=== PATIENT | male | born 1990 | race Caucasian/White ===

== ENCOUNTER 2022-03-11 10:14 | Outpatient (CLI) | payer SELFPAY ==
[2022-03-11 12:14] LABS: Chloride* 98 mmol/L (96-114); Potassium* 3.6 mmol/L (3.6-5.1); Sodium* 139 mmol/L (135-149)
[2022-03-11 12:16] LABS: Creatinine* 0.8 mg/dL (0.5-1.5); Estimated Glomerular Filt Rate 121 ml/min
[2022-03-11 12:17] LABS: Blood Urea Nitrogen* 15 mg/dL (5-24); Calcium* 9.5 mg/dL (8.4-10.6); Carbon Dioxide* 31 mmol/L (20-32); Glucose* 110 mg/dL (60-115); Phosphorus* 3.4 mg/dL (2.5-4.5)
== END 2022-03-11 10:15 | disposition home or self-care (01) ==
PROVIDERS: Visit Provider Family Medicine
DX: I60.9 Nontraumatic subarachnoid hemorrhage, unspecified (principal); R11.2 Nausea with vomiting, unspecified; S02.91XA Unspecified fracture of skull, initial encounter for closed fracture
CPT/HCPCS: 80048; 83735; 84100